=== PATIENT | female | born 1965 | race Caucasian/White ===

== ENCOUNTER 2019-01-07 10:34 | Inpatient (IN) | payer OTHER ==
[~2019-01-07] VITALS: Ht 154.9 cm; Wt 90.8 kg
[~2019-01-07 10:34] MED LIST: CLON-379 PO; FOLI-49 PO; FURO20TA3 PO; GABA100C14 PO; HYDR-3671 PO; INSU100V3 IJ; METO-335 PO; NIFE30TA23 PO; NOVMIX SC; NOVO7030 SC; PANT40TA4 PO
[2019-01-07] MEDS ORDERED: ALBUTEROL 0.083% (NEB) 2.5 MG/3 ML AMP HHN STA (10:43)
[2019-01-07] MEDS ORDERED: NITROGLYCERIN 2% 1 GM OINT PKT TD STA (10:49)
[2019-01-07] MEDS ORDERED: FUROSEMIDE 40 MG INJ IV STA (10:49)
[2019-01-07] MEDS ORDERED: IPRATROPIUM (NEB) 0.5 MG/2.5 ML AMP HHN ONE (11:00)
[2019-01-07] MEDS ORDERED: NITROGLYCERIN (SL) 0.4 MG TAB SL PRN (11:00)
[2019-01-07] MEDS ORDERED: ONDANSETRON 4 MG INJ IV STA (11:22)
[2019-01-07] MEDS ORDERED: CEFEPIME 2GM/50 ML (PMX) 50 ML IVPB STA (12:03)
[2019-01-07] MEDS ORDERED: VANCOMYCIN 1 GM (PMX) 250 ML IVPB ONE (12:30)
[2019-01-07] MEDS ORDERED: ACETAMINOPHEN 325 MG TAB PO PRN (12:30)
[2019-01-07] MEDS ORDERED: ALBUTEROL/IPRATROPIUM (NEB) 3 ML AMP HHN SCH (12:30)
[2019-01-07] MEDS ORDERED: CEFEPIME 2GM/50 ML (PMX) 50 ML IVPB ONE (12:30)
[2019-01-07] MEDS ORDERED: VANCOMYCIN IV PER PHARMACY XX SCH (12:30)
[2019-01-07] MEDS ORDERED: ONDANSETRON 4 MG INJ IV PRN ×2 (12:30→17:00)
[2019-01-07] MEDS: METHYLPREDNISOLONE 40 MG INJ IV SCH ×2 (15:20→22:41)
[2019-01-07] MEDS ORDERED: HYDROCODONE/APAP (5/325) TAB PO PRN (17:00)
[2019-01-07] MEDS ORDERED: NACL 0.9% 3 ML SYG IV SCH (17:00)
[2019-01-07 17:25] VITALS: BP 127/74; PULSE 98; RESP 18
[2019-01-07 18:22] VITALS: Ht 154.9 cm; Wt 90.8 kg
[2019-01-07] MEDS: INSULIN ASPART [NOVOLOG] 3 ML PEN SC SCH ×2 (18:58→23:08)
[2019-01-07] MEDS: INSULIN ASP PROT/ASPART (70/30) PEN SC SCH (18:59)
[2019-01-07 20:00] VITALS: BP 121/66; PULSE 98; RESP 19
[2019-01-07] MEDS: ALBUTEROL/IPRATROPIUM (NEB) 3 ML AMP HHN SCH (20:06)
[2019-01-07 21:04] VITALS: PULSE 96
[2019-01-07] MEDS: NIFEdipine (XL) 30 MG TAB PO SCH (22:40)
[2019-01-07] MEDS: GABAPENTIN 100 MG CAP PO SCH (22:40)
[2019-01-07] MEDS: HEPARIN 5,000 UNIT/1 ML VIAL SC SCH (22:43)
[2019-01-07 23:10] VITALS: PULSE 92
[2019-01-08] VITALS (12 sets, daily range): BP systolic 121–166; BP diastolic 62–79; PULSE 83–101; RESP 18–20
[2019-01-08] MEDS: ALBUTEROL/IPRATROPIUM (NEB) 3 ML AMP HHN SCH ×4 (01:15→19:56)
[2019-01-08] MEDS: ACCU-CHEK XX SCH (02:00)
[2019-01-08] MEDS: METHYLPREDNISOLONE 40 MG INJ IV SCH ×3 (06:13→21:34)
[2019-01-08] MEDS: PANTOPRAZOLE (EC) 40 MG TAB PO SCH (06:13)
[2019-01-08] MEDS: INSULIN ASPART [NOVOLOG] 3 ML PEN SC SCH ×4 (07:39→21:44)
[2019-01-08] MEDS: INSULIN ASP PROT/ASPART (70/30) PEN SC SCH ×2 (07:53→17:30)
[2019-01-08] MEDS: morphine 2 MG INJ IV PRN (08:39)
[2019-01-08] MEDS: METOPROLOL (XL) 25 MG TAB PO SCH (08:39)
[2019-01-08] MEDS: GABAPENTIN 100 MG CAP PO SCH ×3 (08:39→21:34)
[2019-01-08] MEDS: NIFEdipine (XL) 30 MG TAB PO SCH ×2 (08:39→21:34)
[2019-01-08] MEDS: FOLIC ACID 1 MG TAB PO SCH (08:39)
[2019-01-08] MEDS: HEPARIN 5,000 UNIT/1 ML VIAL SC SCH ×2 (08:52→21:40)
[2019-01-08] MEDS: CEFEPIME 2GM/50 ML (PMX) 50 ML IVPB SCH (12:02)
[2019-01-08] MEDS: ACETAMINOPHEN 325 MG TAB PO PRN (13:34)
[2019-01-08] MEDS: METHADONE 10 MG TAB PO SCH (16:40)
[2019-01-08] MEDS: FUROSEMIDE 20 MG INJ IV SCH (17:34)
[2019-01-09] VITALS (9 sets, daily range): BP systolic 127–143; BP diastolic 68–72; PULSE 73–85; RESP 18–20
[2019-01-09] MEDS: ALBUTEROL/IPRATROPIUM (NEB) 3 ML AMP HHN SCH ×4 (01:12→19:39)
[2019-01-09] MEDS: ACCU-CHEK XX SCH (02:00)
[2019-01-09] MEDS: METHYLPREDNISOLONE 40 MG INJ IV SCH ×3 (05:42→21:42)
[2019-01-09] MEDS: FUROSEMIDE 20 MG INJ IV SCH ×2 (05:42→17:38)
[2019-01-09] MEDS: PANTOPRAZOLE (EC) 40 MG TAB PO SCH (07:56)
[2019-01-09] MEDS: INSULIN ASPART [NOVOLOG] 3 ML PEN SC SCH ×4 (08:11→21:00)
[2019-01-09] MEDS: INSULIN ASP PROT/ASPART (70/30) PEN SC SCH ×2 (08:12→18:07)
[2019-01-09] MEDS: FOLIC ACID 1 MG TAB PO SCH (08:14)
[2019-01-09] MEDS: GABAPENTIN 100 MG CAP PO SCH ×3 (08:14→21:42)
[2019-01-09] MEDS: NIFEdipine (XL) 30 MG TAB PO SCH ×2 (10:16→21:42)
[2019-01-09] MEDS: METOPROLOL (XL) 25 MG TAB PO SCH (10:17)
[2019-01-09] MEDS: HEPARIN 5,000 UNIT/1 ML VIAL SC SCH ×2 (10:18→21:51)
[2019-01-09] MEDS: METHADONE 10 MG TAB PO SCH (10:23)
[2019-01-09] MEDS: CEFEPIME 2GM/50 ML (PMX) 50 ML IVPB SCH (14:06)
[2019-01-09] MEDS: VANCOMYCIN 1.25 GM/NS 250 ML 250 ML IVPB SCH (15:39)
[2019-01-10] VITALS: BP 130/74; PULSE 70; RESP 19
[2019-01-10] MEDS: ALBUTEROL/IPRATROPIUM (NEB) 3 ML AMP HHN SCH ×4 (01:37→19:47)
[2019-01-10] MEDS: morphine 2 MG INJ IV PRN ×2 (01:55→15:49)
[2019-01-10] MEDS: ACCU-CHEK XX SCH (02:00)
[2019-01-10 04:00] VITALS: BP 123/69; PULSE 74; RESP 20
[2019-01-10] MEDS: ACETAMINOPHEN 325 MG TAB PO PRN (04:45)
[2019-01-10] MEDS: METHYLPREDNISOLONE 40 MG INJ IV SCH ×3 (06:28→21:07)
[2019-01-10] MEDS: FUROSEMIDE 20 MG INJ IV SCH ×2 (06:30→17:22)
[2019-01-10 07:25] VITALS: BP 127/68; PULSE 72; RESP 22
[2019-01-10] MEDS: INSULIN ASP PROT/ASPART (70/30) PEN SC SCH ×2 (08:00→19:03)
[2019-01-10] MEDS: INSULIN ASPART [NOVOLOG] 3 ML PEN SC SCH ×4 (08:00→20:50)
[2019-01-10] MEDS: PANTOPRAZOLE (EC) 40 MG TAB PO SCH (08:40)
[2019-01-10] MEDS: GABAPENTIN 100 MG CAP PO SCH ×3 (08:41→21:07)
[2019-01-10] MEDS: METOPROLOL (XL) 25 MG TAB PO SCH (08:41)
[2019-01-10] MEDS: FOLIC ACID 1 MG TAB PO SCH (08:41)
[2019-01-10] MEDS: NIFEdipine (XL) 30 MG TAB PO SCH ×2 (08:42→21:07)
[2019-01-10] MEDS: METHADONE 10 MG TAB PO SCH (08:42)
[2019-01-10] MEDS: HEPARIN 5,000 UNIT/1 ML VIAL SC SCH ×2 (09:08→21:12)
[2019-01-10 10:52] VITALS: BP 143/70; PULSE 71; RESP 17
[2019-01-10] MEDS: CEFEPIME 2GM/50 ML (PMX) 50 ML IVPB SCH (14:39)
[2019-01-10 15:00] VITALS: BP 130/71; PULSE 70; RESP 22
[2019-01-10 20:00] VITALS: BP 162/78; PULSE 71; RESP 18
[2019-01-10] MEDS ORDERED: BUMETANIDE 12 MG in DEXTROSE 5% 72 ML IV ONE (20:00)
[2019-01-10] MEDS: ZOLPIDEM 5 MG TAB PO PRN (21:07)
[2019-01-11] VITALS (31 sets, daily range): BP systolic 106–167; BP diastolic 65–125; PULSE 68–86; RESP 14–24
[2019-01-11] MEDS: ALBUTEROL/IPRATROPIUM (NEB) 3 ML AMP HHN SCH ×4 (01:45→20:00)
[2019-01-11] MEDS: ACCU-CHEK XX SCH (02:00)
[2019-01-11] MEDS: morphine 2 MG INJ IV PRN ×4 (02:47→22:22)
[2019-01-11] MEDS: FUROSEMIDE 20 MG INJ IV SCH ×2 (06:00→17:28)
[2019-01-11] MEDS: METHYLPREDNISOLONE 40 MG INJ IV SCH ×3 (06:26→22:22)
[2019-01-11] MEDS: INSULIN ASPART [NOVOLOG] 3 ML PEN SC SCH ×4 (07:51→20:14)
[2019-01-11] MEDS: INSULIN ASP PROT/ASPART (70/30) PEN SC SCH ×2 (07:52→17:35)
[2019-01-11] MEDS: GABAPENTIN 100 MG CAP PO SCH ×3 (08:10→22:21)
[2019-01-11] MEDS: NIFEdipine (XL) 30 MG TAB PO SCH ×2 (08:11→22:22)
[2019-01-11] MEDS: FOLIC ACID 1 MG TAB PO SCH (08:11)
[2019-01-11] MEDS: PANTOPRAZOLE (EC) 40 MG TAB PO SCH (08:11)
[2019-01-11] MEDS: METOPROLOL (XL) 25 MG TAB PO SCH (08:11)
[2019-01-11] MEDS: METHADONE 10 MG TAB PO SCH (08:11)
[2019-01-11] MEDS: HEPARIN 5,000 UNIT/1 ML VIAL SC SCH ×2 (09:25→22:40)
[2019-01-11] MEDS: CEFEPIME 2GM/50 ML (PMX) 50 ML IVPB SCH (14:08)
[2019-01-11] MEDS: VANCOMYCIN 1.25 GM/NS 250 ML 250 ML IVPB SCH (15:50)
[2019-01-11] MEDS ORDERED: morphine 2 MG INJ IV STA (17:47)
[2019-01-11] MEDS ORDERED: HEPARIN 5,000 UNIT/1 ML VIAL CATHETER ONE (21:00)
[2019-01-11] MEDS ORDERED: HEPARIN 1000 UNITS/ML 10 ML INJ ONE (21:26)
[2019-01-12] VITALS (57 sets, daily range): BP systolic 75–163; BP diastolic 56–89; PULSE 59–75; RESP 10–30
[2019-01-12] MEDS: ACCU-CHEK XX SCH (01:01)
[2019-01-12] MEDS: ALBUTEROL/IPRATROPIUM (NEB) 3 ML AMP HHN SCH ×4 (01:33→19:24)
[2019-01-12] MEDS: DOCUSATE SODIUM 100 MG CAP PO PRN ×2 (04:42→14:44)
[2019-01-12] MEDS: morphine 2 MG INJ IV PRN ×3 (04:42→21:16)
[2019-01-12] MEDS: FUROSEMIDE 20 MG INJ IV SCH ×2 (05:19→17:59)
[2019-01-12] MEDS: METHYLPREDNISOLONE 40 MG INJ IV SCH ×2 (05:19→14:58)
[2019-01-12] MEDS: PANTOPRAZOLE (EC) 40 MG TAB PO SCH (06:32)
[2019-01-12] MEDS: INSULIN ASP PROT/ASPART (70/30) PEN SC SCH ×2 (07:35→17:53)
[2019-01-12] MEDS: METOPROLOL (XL) 25 MG TAB PO SCH (08:20)
[2019-01-12] MEDS: FOLIC ACID 1 MG TAB PO SCH (08:20)
[2019-01-12] MEDS: NIFEdipine (XL) 30 MG TAB PO SCH ×2 (08:21→21:01)
[2019-01-12] MEDS: GABAPENTIN 100 MG CAP PO SCH ×3 (08:21→21:00)
[2019-01-12] MEDS: HEPARIN 5,000 UNIT/1 ML VIAL SC SCH ×2 (08:23→21:07)
[2019-01-12] MEDS: INSULIN ASPART [NOVOLOG] 3 ML PEN SC SCH ×4 (08:24→20:13)
[2019-01-12] MEDS: METHADONE 10 MG TAB PO SCH (09:34)
[2019-01-12] MEDS: CEFEPIME 2GM/50 ML (PMX) 50 ML IVPB SCH (13:00)
[2019-01-12] MEDS ORDERED: HEPARIN 1000 UNITS/ML 10 ML INJ CATHETER ONE (14:30)
[2019-01-12] MEDS ORDERED: GLUCOSE GEL 15 GRAM TUBE PO PRN ×2 (15:00)
[2019-01-12] MEDS ORDERED: DEXTROSE 50% 50 ML SYRINGE IV PRN ×2 (15:00)
[2019-01-12] MEDS: LACTULOSE 30ML CUP PO SCH ×2 (15:00→21:01)
[2019-01-12] MEDS ORDERED: GLUCAGON 1 MG INJ IM PRN (15:00)
[2019-01-12] MEDS ORDERED: NA PHOSPHATE/BIPHOS 133 ML ENEMA PR ONE ×2 (15:00)
[2019-01-12] MEDS ORDERED: GLUCOSE GEL 15 GRAM TUBE BUCCAL PRN (15:00)
[2019-01-12] MEDS: METHYLPREDNISOLONE 125 MG INJ IV SCH (21:11)
[2019-01-13] VITALS (53 sets, daily range): BP systolic 89–165; BP diastolic 53–91; PULSE 63–82; RESP 10–25
[2019-01-13] MEDS: ACCU-CHEK XX SCH (01:00)
[2019-01-13] MEDS: LACTULOSE 30ML CUP PO SCH ×3 (01:22→22:49)
[2019-01-13] MEDS: ALBUTEROL/IPRATROPIUM (NEB) 3 ML AMP HHN SCH ×4 (02:27→19:29)
[2019-01-13] MEDS: morphine 2 MG INJ IV PRN ×3 (03:05→22:59)
[2019-01-13] MEDS: METHYLPREDNISOLONE 125 MG INJ IV SCH ×3 (05:28→22:49)
[2019-01-13] MEDS: PANTOPRAZOLE (EC) 40 MG TAB PO SCH (05:29)
[2019-01-13] MEDS: FUROSEMIDE 20 MG INJ IV SCH ×2 (05:30→18:01)
[2019-01-13] MEDS: INSULIN ASPART [NOVOLOG] 3 ML PEN SC SCH ×4 (07:35→20:44)
[2019-01-13] MEDS: GABAPENTIN 100 MG CAP PO SCH ×3 (08:39→20:38)
[2019-01-13] MEDS: FOLIC ACID 1 MG TAB PO SCH (08:39)
[2019-01-13] MEDS: METHADONE 10 MG TAB PO SCH (08:41)
[2019-01-13] MEDS: HEPARIN 5,000 UNIT/1 ML VIAL SC SCH ×2 (08:43→20:40)
[2019-01-13] MEDS: INSULIN ASP PROT/ASPART (70/30) PEN SC SCH ×2 (08:44→18:05)
[2019-01-13] MEDS: METOPROLOL (XL) 25 MG TAB PO SCH (08:54)
[2019-01-13] MEDS: NIFEdipine (XL) 30 MG TAB PO SCH ×2 (08:54→20:39)
[2019-01-13] MEDS ORDERED: ALBUMIN HUMAN 25% 100 ML IV PRN (11:30)
[2019-01-13] MEDS ORDERED: ALTEPLASE (CATHFLO) 2 MG INJ CATHETER ONE (12:00)
[2019-01-13] MEDS: CEFEPIME 2GM/50 ML (PMX) 50 ML IVPB SCH ×2 (12:14→14:54)
[2019-01-14] VITALS (51 sets, daily range): BP systolic 112–180; BP diastolic 64–91; PULSE 66–86; RESP 10–23
[2019-01-14] MEDS: ALBUTEROL/IPRATROPIUM (NEB) 3 ML AMP HHN SCH ×4 (01:09→19:38)
[2019-01-14] MEDS: ACCU-CHEK XX SCH (02:01)
[2019-01-14] MEDS: ZOLPIDEM 5 MG TAB PO PRN (02:18)
[2019-01-14] MEDS: METHYLPREDNISOLONE 125 MG INJ IV SCH ×3 (05:52→23:26)
[2019-01-14] MEDS: LACTULOSE 30ML CUP PO SCH ×3 (05:53→21:51)
[2019-01-14] MEDS: FUROSEMIDE 20 MG INJ IV SCH ×2 (05:54→17:54)
[2019-01-14] MEDS: PANTOPRAZOLE (EC) 40 MG TAB PO SCH (08:26)
[2019-01-14] MEDS: GABAPENTIN 100 MG CAP PO SCH ×3 (08:27→23:25)
[2019-01-14] MEDS: METHADONE 10 MG TAB PO SCH (08:27)
[2019-01-14] MEDS: FOLIC ACID 1 MG TAB PO SCH (08:27)
[2019-01-14] MEDS: INSULIN ASPART [NOVOLOG] 3 ML PEN SC SCH ×4 (08:30→23:30)
[2019-01-14] MEDS: INSULIN ASP PROT/ASPART (70/30) PEN SC SCH ×2 (08:31→17:57)
[2019-01-14] MEDS: HEPARIN 5,000 UNIT/1 ML VIAL SC SCH ×2 (08:32→21:00)
[2019-01-14] MEDS: METOPROLOL (XL) 25 MG TAB PO SCH (08:36)
[2019-01-14] MEDS: NIFEdipine (XL) 30 MG TAB PO SCH ×2 (08:36→21:00)
[2019-01-14] MEDS: CEFEPIME 1GM/50 ML IVPB SCH (14:18)
[2019-01-14] MEDS ORDERED: VANCOMYCIN 1.25 GM/NS 250 ML 250 ML IVPB SCH (15:30)
[2019-01-14] MEDS: morphine 2 MG INJ IV PRN (23:31)
[2019-01-14] MEDS: HEPARIN 1000 UNITS/ML 10 ML INJ CATHETER SCH (23:42)
[2019-01-15] VITALS (31 sets, daily range): BP systolic 123–173; BP diastolic 74–108; PULSE 69–88; RESP 10–36
[2019-01-15] MEDS: ALBUTEROL/IPRATROPIUM (NEB) 3 ML AMP HHN PRN ×2 (00:35→09:23)
[2019-01-15] MEDS: ACCU-CHEK XX SCH (02:00)
[2019-01-15] MEDS: FUROSEMIDE 20 MG INJ IV SCH ×2 (05:25→17:19)
[2019-01-15] MEDS: LACTULOSE 30ML CUP PO SCH ×3 (05:25→22:00)
[2019-01-15] MEDS: METHYLPREDNISOLONE 125 MG INJ IV SCH ×3 (05:25→22:00)
[2019-01-15] MEDS: ALBUTEROL/IPRATROPIUM (NEB) 3 ML AMP HHN SCH ×4 (05:37→20:06)
[2019-01-15] MEDS: CHOLECALCIFEROL 2,000 UNIT CAP PO SCH (08:49)
[2019-01-15] MEDS: FOLIC ACID 1 MG TAB PO SCH (08:49)
[2019-01-15] MEDS: PANTOPRAZOLE (EC) 40 MG TAB PO SCH (08:50)
[2019-01-15] MEDS: METOPROLOL (XL) 25 MG TAB PO SCH (08:50)
[2019-01-15] MEDS: NIFEdipine (XL) 30 MG TAB PO SCH ×2 (08:50→20:41)
[2019-01-15] MEDS: GABAPENTIN 100 MG CAP PO SCH ×3 (08:50→20:41)
[2019-01-15] MEDS: METHADONE 10 MG TAB PO SCH (08:51)
[2019-01-15] MEDS: INSULIN ASP PROT/ASPART (70/30) PEN SC SCH ×2 (08:52→17:23)
[2019-01-15] MEDS: HEPARIN 5,000 UNIT/1 ML VIAL SC SCH ×2 (08:52→20:43)
[2019-01-15] MEDS: INSULIN ASPART [NOVOLOG] 3 ML PEN SC SCH ×4 (08:53→20:43)
[2019-01-15] MEDS: CEFEPIME 1GM/50 ML IVPB SCH (12:15)
[2019-01-15] MEDS: morphine 2 MG INJ IV PRN (15:36)
[2019-01-16] VITALS (37 sets, daily range): BP systolic 80–154; BP diastolic 48–92; PULSE 73–88; RESP 0–27
[2019-01-16] MEDS: ALBUTEROL/IPRATROPIUM (NEB) 3 ML AMP HHN SCH ×4 (01:25→19:46)
[2019-01-16] MEDS: ACCU-CHEK XX SCH (02:39)
[2019-01-16] MEDS ORDERED: ACCU-CHEK XX ONE ×2 (03:00→21:00)
[2019-01-16] MEDS ORDERED: INSULIN ASPART [NOVOLOG] 3 ML PEN SC ONE ×2 (03:00→21:00)
[2019-01-16] MEDS: ALBUTEROL/IPRATROPIUM (NEB) 3 ML AMP HHN PRN (04:40)
[2019-01-16] MEDS: LACTULOSE 30ML CUP PO SCH ×3 (06:00→21:13)
[2019-01-16] MEDS: PANTOPRAZOLE (EC) 40 MG TAB PO SCH (06:09)
[2019-01-16] MEDS: METHYLPREDNISOLONE 125 MG INJ IV SCH ×3 (06:09→21:18)
[2019-01-16] MEDS: morphine 2 MG INJ IV PRN (06:17)
[2019-01-16] MEDS: FUROSEMIDE 20 MG INJ IV SCH ×2 (06:18→18:00)
[2019-01-16] MEDS ORDERED: MAGNESIUM SULFATE 2 GM/50 ML 50 ML IVPB ONE (07:00)
[2019-01-16] MEDS: GABAPENTIN 100 MG CAP PO SCH ×3 (08:11→20:28)
[2019-01-16] MEDS: CHOLECALCIFEROL 2,000 UNIT CAP PO SCH (08:11)
[2019-01-16] MEDS: METHADONE 10 MG TAB PO SCH (08:11)
[2019-01-16] MEDS: FOLIC ACID 1 MG TAB PO SCH (08:11)
[2019-01-16] MEDS: NIFEdipine (XL) 30 MG TAB PO SCH ×2 (08:12→20:29)
[2019-01-16] MEDS: METOPROLOL (XL) 25 MG TAB PO SCH (08:12)
[2019-01-16] MEDS: HEPARIN 5,000 UNIT/1 ML VIAL SC SCH ×2 (08:14→20:32)
[2019-01-16] MEDS: INSULIN ASP PROT/ASPART (70/30) PEN SC SCH ×2 (08:16→18:29)
[2019-01-16] MEDS: INSULIN ASPART [NOVOLOG] 3 ML PEN SC SCH ×4 (08:17→20:58)
[2019-01-16] MEDS ORDERED: ALTEPLASE (CATHFLO) 2 MG INJ CATHETER ONE (18:00)
[2019-01-16] MEDS ORDERED: INSULIN GLARGINE [LANTus] (100 UNITS/ML) SYG SC SCH (20:00)
[2019-01-16] MEDS: DOCUSATE SODIUM 100 MG CAP PO PRN (20:28)
[2019-01-17] VITALS (24 sets, daily range): BP systolic 107–147; BP diastolic 67–107; PULSE 68–92; RESP 12–29
[2019-01-17] MEDS: morphine 2 MG INJ IV PRN ×2 (00:27→06:46)
[2019-01-17] MEDS: ACCU-CHEK XX SCH (02:55)
[2019-01-17] MEDS: ALBUTEROL/IPRATROPIUM (NEB) 3 ML AMP HHN SCH ×4 (04:26→20:00)
[2019-01-17] MEDS: LACTULOSE 30ML CUP PO SCH ×2 (05:55→21:10)
[2019-01-17] MEDS: FUROSEMIDE 20 MG INJ IV SCH ×2 (06:12→17:40)
[2019-01-17] MEDS: METHYLPREDNISOLONE 125 MG INJ IV SCH ×3 (06:12→21:13)
[2019-01-17] MEDS: PANTOPRAZOLE (EC) 40 MG TAB PO SCH (06:12)
[2019-01-17] MEDS: INSULIN ASP PROT/ASPART (70/30) PEN SC SCH ×2 (08:19→17:44)
[2019-01-17] MEDS: INSULIN ASPART [NOVOLOG] 3 ML PEN SC SCH ×4 (08:20→21:00)
[2019-01-17] MEDS: HEPARIN 5,000 UNIT/1 ML VIAL SC SCH (08:21)
[2019-01-17] MEDS: NIFEdipine (XL) 30 MG TAB PO SCH ×2 (08:27→21:11)
[2019-01-17] MEDS: CHOLECALCIFEROL 2,000 UNIT CAP PO SCH (08:27)
[2019-01-17] MEDS: FOLIC ACID 1 MG TAB PO SCH (08:27)
[2019-01-17] MEDS: GABAPENTIN 100 MG CAP PO SCH ×3 (08:27→21:11)
[2019-01-17] MEDS: METOPROLOL (XL) 25 MG TAB PO SCH (08:27)
[2019-01-17] MEDS: METHADONE 10 MG TAB PO SCH (08:28)
[2019-01-17] MEDS ORDERED: POTASSIUM CHLORIDE (SR) 20 MEQ TAB PO STA (08:40)
[2019-01-17] MEDS ORDERED: INSULIN GLARGINE [LANTus] (100 UNITS/ML) SYG SC ONE (20:00)
[2019-01-17] MEDS: FENTAnyl 50 MCG/ML VIAL IV PRN (21:18)
[2019-01-17] MEDS ORDERED: INSULIN ASPART [NOVOLOG] 3 ML PEN SC ONE (22:30)
[2019-01-18] VITALS (29 sets, daily range): BP systolic 117–156; BP diastolic 60–88; PULSE 71–85; RESP 10–26
[2019-01-18] MEDS ORDERED: ACCU-CHEK XX ONE (00:30)
[2019-01-18] MEDS: ALBUTEROL/IPRATROPIUM (NEB) 3 ML AMP HHN SCH ×4 (01:19→20:00)
[2019-01-18] MEDS: FENTAnyl 50 MCG/ML VIAL IV PRN ×3 (01:31→12:06)
[2019-01-18] MEDS: ACCU-CHEK XX SCH ×13 (04:00→23:30)
[2019-01-18] MEDS: METHYLPREDNISOLONE 125 MG INJ IV SCH ×3 (05:42→21:42)
[2019-01-18] MEDS: FUROSEMIDE 20 MG INJ IV SCH ×2 (05:42→17:35)
[2019-01-18] MEDS: PANTOPRAZOLE (EC) 40 MG TAB PO SCH (05:43)
[2019-01-18] MEDS: INSULIN ASPART [NOVOLOG] 3 ML PEN SC SCH ×2 (08:22→11:57)
[2019-01-18] MEDS: LACTULOSE 30ML CUP PO SCH (08:57)
[2019-01-18] MEDS: NIFEdipine (XL) 30 MG TAB PO SCH ×2 (08:57→20:38)
[2019-01-18] MEDS: FOLIC ACID 1 MG TAB PO SCH (08:58)
[2019-01-18] MEDS: METOPROLOL (XL) 25 MG TAB PO SCH (08:58)
[2019-01-18] MEDS: CHOLECALCIFEROL 2,000 UNIT CAP PO SCH (08:58)
[2019-01-18] MEDS: GABAPENTIN 100 MG CAP PO SCH ×3 (08:59→20:38)
[2019-01-18] MEDS: METHADONE 10 MG TAB PO SCH (08:59)
[2019-01-18] MEDS ORDERED: DEXTROSE 50% 50 ML SYRINGE IV PRN ×2 (12:30)
[2019-01-18] MEDS: INSULIN HUMAN REGULAR 100 UNIT in SOD CHLORIDE 0.9% 99 ML IV SCH (13:26)
[2019-01-18] MEDS: LACTOBACILLUS RHAMNOSUS CAP PO SCH (20:38)
[2019-01-18] MEDS: ALBUTEROL/IPRATROPIUM (NEB) 3 ML AMP HHN PRN (22:16)
[2019-01-19] VITALS (27 sets, daily range): BP systolic 85–136; BP diastolic 57–98; PULSE 23–82; RESP 9–19
[2019-01-19] MEDS: ACCU-CHEK XX SCH ×25 (00:33→23:18)
[2019-01-19] MEDS: ALBUTEROL/IPRATROPIUM (NEB) 3 ML AMP HHN SCH ×4 (02:00→19:29)
[2019-01-19] MEDS: FUROSEMIDE 20 MG INJ IV SCH ×2 (06:17→17:45)
[2019-01-19] MEDS: METHYLPREDNISOLONE 125 MG INJ IV SCH (06:19)
[2019-01-19] MEDS: PANTOPRAZOLE (EC) 40 MG TAB PO SCH (06:21)
[2019-01-19] MEDS: FENTAnyl 50 MCG/ML VIAL IV PRN (08:02)
[2019-01-19] MEDS: LACTULOSE 30ML CUP PO SCH (08:44)
[2019-01-19] MEDS: GABAPENTIN 100 MG CAP PO SCH ×3 (08:45→20:53)
[2019-01-19] MEDS: NIFEdipine (XL) 30 MG TAB PO SCH ×2 (08:45→20:53)
[2019-01-19] MEDS: LACTOBACILLUS RHAMNOSUS CAP PO SCH ×2 (08:45→20:52)
[2019-01-19] MEDS: FOLIC ACID 1 MG TAB PO SCH (08:45)
[2019-01-19] MEDS: METHADONE 10 MG TAB PO SCH (08:45)
[2019-01-19] MEDS: METOPROLOL (XL) 25 MG TAB PO SCH (08:46)
[2019-01-19] MEDS: CHOLECALCIFEROL 2,000 UNIT CAP PO SCH (08:46)
[2019-01-19] MEDS: HEPARIN 5,000 UNIT/1 ML VIAL SC SCH ×2 (09:04→20:54)
[2019-01-19] MEDS: INSULIN HUMAN REGULAR 100 UNIT in SOD CHLORIDE 0.9% 99 ML IV SCH (09:28)
[2019-01-19] MEDS: METHYLPREDNISOLONE 40 MG INJ IV SCH ×3 (11:39→23:48)
[2019-01-19] MEDS ORDERED: ACETAMINOPHEN 325 MG TAB PO PRN (12:00)
[2019-01-19] MEDS ORDERED: HYDROCODONE/APAP (10/325) TAB PO PRN (18:00)
[2019-01-20] VITALS (29 sets, daily range): BP systolic 102–155; BP diastolic 55–107; PULSE 72–85; RESP 8–28
[2019-01-20] MEDS: ACCU-CHEK XX SCH ×21 (00:40→20:30)
[2019-01-20] MEDS: ALBUTEROL/IPRATROPIUM (NEB) 3 ML AMP HHN SCH ×4 (01:47→20:03)
[2019-01-20] MEDS: METHYLPREDNISOLONE 40 MG INJ IV SCH ×4 (05:21→23:02)
[2019-01-20] MEDS: FUROSEMIDE 20 MG INJ IV SCH ×2 (05:21→17:55)
[2019-01-20] MEDS: PANTOPRAZOLE (EC) 40 MG TAB PO SCH (07:05)
[2019-01-20] MEDS: LACTULOSE 30ML CUP PO SCH (08:14)
[2019-01-20] MEDS: GABAPENTIN 100 MG CAP PO SCH ×3 (08:15→20:51)
[2019-01-20] MEDS: NIFEdipine (XL) 30 MG TAB PO SCH ×2 (08:15→20:51)
[2019-01-20] MEDS: FOLIC ACID 1 MG TAB PO SCH (08:16)
[2019-01-20] MEDS: LACTOBACILLUS RHAMNOSUS CAP PO SCH ×2 (08:16→20:51)
[2019-01-20] MEDS: CHOLECALCIFEROL 2,000 UNIT CAP PO SCH (08:16)
[2019-01-20] MEDS: METOPROLOL (XL) 25 MG TAB PO SCH (08:16)
[2019-01-20] MEDS ORDERED: NA POLYST SULFON 15 GM/60 ML BTL PO ONE (08:30)
[2019-01-20] MEDS: HEPARIN 5,000 UNIT/1 ML VIAL SC SCH ×2 (08:36→20:53)
[2019-01-20] MEDS: METHADONE 10 MG TAB PO SCH (08:50)
[2019-01-20] MEDS: FENTAnyl 50 MCG/ML VIAL IV PRN ×2 (12:00→21:59)
[2019-01-20] MEDS: INSULIN HUMAN REGULAR 100 UNIT in SOD CHLORIDE 0.9% 99 ML IV SCH (16:55)
[2019-01-20] MEDS ORDERED: INSULIN GLARGINE [LANTus] (100 UNITS/ML) SYG SC SCH (20:00)
[2019-01-21] VITALS (61 sets, daily range): BP systolic 80–147; BP diastolic 52–111; PULSE 73–87; RESP 7–28
[2019-01-21] MEDS: ACCU-CHEK XX SCH ×23 (01:45→23:00)
[2019-01-21] MEDS: ALBUTEROL/IPRATROPIUM (NEB) 3 ML AMP HHN SCH ×4 (01:55→20:43)
[2019-01-21] MEDS ORDERED: DEXTROSE 50% 50 ML SYRINGE IV PRN ×2 (02:00)
[2019-01-21] MEDS: INSULIN HUMAN REGULAR 100 UNIT in SOD CHLORIDE 0.9% 99 ML IV SCH (02:33)
[2019-01-21] MEDS: METHYLPREDNISOLONE 40 MG INJ IV SCH ×3 (06:20→18:31)
[2019-01-21] MEDS: PANTOPRAZOLE (EC) 40 MG TAB PO SCH (06:20)
[2019-01-21] MEDS: FUROSEMIDE 20 MG INJ IV SCH ×2 (06:21→18:00)
[2019-01-21] MEDS ORDERED: INSULIN ASPART [NOVOLOG] 3 ML PEN SC SCH (07:35)
[2019-01-21] MEDS: GABAPENTIN 100 MG CAP PO SCH ×3 (08:19→21:00)
[2019-01-21] MEDS: LACTULOSE 30ML CUP PO SCH ×3 (08:19→08:38)
[2019-01-21] MEDS: LACTOBACILLUS RHAMNOSUS CAP PO SCH ×2 (08:19→21:00)
[2019-01-21] MEDS: METHADONE 10 MG TAB PO SCH (08:19)
[2019-01-21] MEDS: FOLIC ACID 1 MG TAB PO SCH (08:20)
[2019-01-21] MEDS: CHOLECALCIFEROL 2,000 UNIT CAP PO SCH (08:20)
[2019-01-21] MEDS: HEPARIN 5,000 UNIT/1 ML VIAL SC SCH ×2 (08:22→21:19)
[2019-01-21] MEDS: METOPROLOL (XL) 25 MG TAB PO SCH (09:00)
[2019-01-21] MEDS: NIFEdipine (XL) 30 MG TAB PO SCH ×2 (09:00→21:00)
[2019-01-21] MEDS ORDERED: VANCOMYCIN IV PER PHARMACY XX SCH (10:00)
[2019-01-21] MEDS ORDERED: VANCOMYCIN HCL 1.75 GM in SOD CHLORIDE 0.9% 500 ML IVPB ONE (10:30)
[2019-01-21] MEDS: CEFEPIME 1GM/50 ML (PMX) 50 ML IVPB SCH (11:38)
[2019-01-21] MEDS: LORAZEPAM 2 MG INJ IV PRN (14:54)
[2019-01-21] MEDS: HEPARIN 1000 UNITS/ML 10 ML INJ CATHETER SCH (17:57)
[2019-01-22] VITALS (53 sets, daily range): BP systolic 90–131; BP diastolic 41–88; PULSE 80–95; RESP 7–21
[2019-01-22] MEDS: METHYLPREDNISOLONE 40 MG INJ IV SCH ×5 (00:09→23:52)
[2019-01-22] MEDS: ACCU-CHEK XX SCH ×26 (01:00→23:51)
[2019-01-22] MEDS: ALBUTEROL/IPRATROPIUM (NEB) 3 ML AMP HHN SCH ×4 (02:29→19:21)
[2019-01-22] MEDS: FUROSEMIDE 20 MG INJ IV SCH ×2 (06:30→18:54)
[2019-01-22] MEDS: PANTOPRAZOLE (EC) 40 MG TAB PO SCH (06:31)
[2019-01-22] MEDS: LACTULOSE 30ML CUP PO SCH (09:00)
[2019-01-22] MEDS: GABAPENTIN 100 MG CAP PO SCH ×3 (09:00→21:00)
[2019-01-22] MEDS: LACTOBACILLUS RHAMNOSUS CAP PO SCH ×2 (09:00→21:00)
[2019-01-22] MEDS: CHOLECALCIFEROL 2,000 UNIT CAP PO SCH (09:00)
[2019-01-22] MEDS: NIFEdipine (XL) 30 MG TAB PO SCH ×2 (09:00→21:00)
[2019-01-22] MEDS: FOLIC ACID 1 MG TAB PO SCH (09:00)
[2019-01-22] MEDS: METHADONE 10 MG TAB PO SCH (09:00)
[2019-01-22] MEDS: METOPROLOL (XL) 25 MG TAB PO SCH (09:00)
[2019-01-22] MEDS: HEPARIN 5,000 UNIT/1 ML VIAL SC SCH (09:00)
[2019-01-22] MEDS: CEFEPIME 1GM/50 ML (PMX) 50 ML IVPB SCH (10:38)
[2019-01-22] MEDS ORDERED: morphine 2 MG INJ IV STA (14:43)
[2019-01-22] MEDS: HEPARIN 1000 UNITS/ML 10 ML INJ CATHETER SCH (17:11)
[2019-01-22] MEDS ORDERED: BISACODYL 10 MG SUPP PR PRN (21:00)
[2019-01-22] MEDS ORDERED: ACETAMINOPHEN 1000MG/100ML IV 100 ML IVPB ONE (21:30)
[2019-01-22] MEDS: FENTAnyl 50 MCG/ML VIAL IV PRN (23:57)
[2019-01-23] VITALS (50 sets, daily range): BP systolic 114–187; BP diastolic 57–139; PULSE 76–141; RESP 10–26
[2019-01-23] MEDS: ACCU-CHEK XX SCH ×18 (01:00→21:20)
[2019-01-23] MEDS: ALBUTEROL/IPRATROPIUM (NEB) 3 ML AMP HHN SCH ×4 (02:14→19:30)
[2019-01-23] MEDS: INSULIN HUMAN REGULAR 100 UNIT in SOD CHLORIDE 0.9% 99 ML IV SCH (03:49)
[2019-01-23] MEDS: FUROSEMIDE 20 MG INJ IV SCH ×2 (06:05→19:15)
[2019-01-23] MEDS: PANTOPRAZOLE (EC) 40 MG TAB PO SCH (06:06)
[2019-01-23] MEDS: METHYLPREDNISOLONE 40 MG INJ IV SCH ×3 (06:06→19:20)
[2019-01-23] MEDS: FENTAnyl 50 MCG/ML VIAL IV PRN ×5 (06:06→23:04)
[2019-01-23] MEDS: LACTOBACILLUS RHAMNOSUS CAP PO SCH ×2 (09:00→20:53)
[2019-01-23] MEDS: FOLIC ACID 1 MG TAB PO SCH (09:00)
[2019-01-23] MEDS: GABAPENTIN 100 MG CAP PO SCH ×3 (09:00→20:53)
[2019-01-23] MEDS: METOPROLOL (XL) 25 MG TAB PO SCH (09:00)
[2019-01-23] MEDS: CHOLECALCIFEROL 2,000 UNIT CAP PO SCH (09:00)
[2019-01-23] MEDS: METHADONE 10 MG TAB PO SCH (09:00)
[2019-01-23] MEDS: LACTULOSE 30ML CUP PO SCH (09:00)
[2019-01-23] MEDS: NIFEdipine (XL) 30 MG TAB PO SCH ×2 (09:00→20:54)
[2019-01-23] MEDS: CEFEPIME 1GM/50 ML (PMX) 50 ML IVPB SCH (10:10)
[2019-01-23] MEDS ORDERED: DILTIAZEM 25 MG INJ IV STA (12:09)
[2019-01-23] MEDS: HEPARIN 1000 UNITS/ML 10 ML INJ CATHETER SCH (12:44)
[2019-01-23] MEDS ORDERED: VANCOMYCIN 1.25 GM/NS 250 ML 250 ML IVPB SCH (14:00)
[2019-01-23] MEDS ORDERED: NA POLYST SULFON 15 GM/60 ML BTL PO ONE (14:00)
[2019-01-23] MEDS: LORAZEPAM 2 MG INJ IV PRN (19:45)
[2019-01-23] MEDS ORDERED: INSULIN GLARGINE [LANTus] (100 UNITS/ML) SYG SC SCH (20:00)
[2019-01-23] MEDS: INSULIN ASPART [NOVOLOG] 3 ML PEN SC SCH (21:00)
[2019-01-23] MEDS: hydrALAzine 20 MG INJ IV PRN (22:28)
[2019-01-24] VITALS (36 sets, daily range): BP systolic 120–172; BP diastolic 68–99; PULSE 95–139; RESP 10–28
[2019-01-24] MEDS: METHYLPREDNISOLONE 40 MG INJ IV SCH ×3 (00:16→12:53)
[2019-01-24] MEDS: INSULIN ASPART [NOVOLOG] 3 ML PEN SC SCH ×4 (00:28→13:11)
[2019-01-24] MEDS: ACCU-CHEK XX SCH ×3 (01:00→09:00)
[2019-01-24] MEDS: ALBUTEROL/IPRATROPIUM (NEB) 3 ML AMP HHN SCH ×3 (01:07→14:50)
[2019-01-24] MEDS ORDERED: ACCU-CHEK XX SCH ×2 (02:00)
[2019-01-24] MEDS: hydrALAzine 20 MG INJ IV PRN (04:13)
[2019-01-24] MEDS: FUROSEMIDE 20 MG INJ IV SCH (05:27)
[2019-01-24] MEDS: FENTAnyl 50 MCG/ML VIAL IV PRN ×3 (05:33→12:47)
[2019-01-24] MEDS: PANTOPRAZOLE (EC) 40 MG TAB PO SCH (06:37)
[2019-01-24] MEDS ORDERED: DILTIAZEM 25 MG INJ IV ONE (07:00)
[2019-01-24] MEDS: LACTOBACILLUS RHAMNOSUS CAP PO SCH (08:21)
[2019-01-24] MEDS: LACTULOSE 30ML CUP PO SCH (08:21)
[2019-01-24] MEDS: FOLIC ACID 1 MG TAB PO SCH (08:21)
[2019-01-24] MEDS: METOPROLOL (XL) 25 MG TAB PO SCH (08:22)
[2019-01-24] MEDS: METHADONE 10 MG TAB PO SCH (08:22)
[2019-01-24] MEDS: NIFEdipine (XL) 30 MG TAB PO SCH (08:22)
[2019-01-24] MEDS: GABAPENTIN 100 MG CAP PO SCH ×2 (08:22→10:06)
[2019-01-24] MEDS: CHOLECALCIFEROL 2,000 UNIT CAP PO SCH (08:22)
[2019-01-24] MEDS: LORAZEPAM 2 MG INJ IV PRN (08:47)
[2019-01-24] MEDS: CEFEPIME 1GM/50 ML (PMX) 50 ML IVPB SCH (12:54)
[2019-01-24] MEDS ORDERED: LORAZEPAM 2 MG INJ IV PRN (15:30)
[2019-01-24] MEDS ORDERED: HYDROmorphONE 2 MG/ML SYG IV PRN (15:30)
[2019-01-24] MEDS ORDERED: ATROPINE SULFATE 1% 5ML SL PRN (16:30)
[2019-01-24] MEDS: morphine (DRIP) 100 MG/100 ML 100 ML IV SCH (17:17)
[2019-01-25] VITALS (19 sets, daily range): BP systolic 0–124; BP diastolic 0–103; PULSE 0–130; RESP 0–15
[2019-01-25] MEDS: morphine (DRIP) 100 MG/100 ML 100 ML IV SCH ×2 (03:01→12:35)
== END 2019-01-25 18:11 | disposition expired | DRG 193 ==
LOC: E/R 10:34 → 6WM 12:11 → ICU 01-11 14:38
PROVIDERS: ADMIT Internal Medicine; ATTEND Internal Medicine
PROC: 06HY33Z Insertion of Infusion Device into Lower Vein, Percutaneous Approach (ICD-10-PCS; principal; 2019-01-11)
PROC: 5A1D70Z Performance of Urinary Filtration, Intermittent, Less than 6 Hours Per Day (ICD-10-PCS; 2019-01-11)
DX: J18.9 Pneumonia, unspecified organism (principal); J96.21 Acute and chronic respiratory failure with hypoxia; N17.0 Acute kidney failure with tubular necrosis; E87.2 Acidosis; I13.0 Hypertensive heart and chronic kidney disease with heart failure and stage 1 through stage 4 chronic kidney disease, or unspecified chronic kidney disease; I50.32 Chronic diastolic (congestive) heart failure; J44.0 Chronic obstructive pulmonary disease with (acute) lower respiratory infection; I27.20 Pulmonary hypertension, unspecified; J84.10 Pulmonary fibrosis, unspecified; B19.20 Unspecified viral hepatitis C without hepatic coma; D63.1 Anemia in chronic kidney disease; E11.22 Type 2 diabetes mellitus with diabetic chronic kidney disease; E66.01 Morbid (severe) obesity due to excess calories; E87.70 Fluid overload, unspecified; F11.10 Opioid abuse, uncomplicated; G89.4 Chronic pain syndrome; K72.90 Hepatic failure, unspecified without coma; K70.30 Alcoholic cirrhosis of liver without ascites; K59.09 Other constipation; N18.9 Chronic kidney disease, unspecified; R14.0 Abdominal distension (gaseous); Z66 Do not resuscitate; Z51.5 Encounter for palliative care; Z87.891 Personal history of nicotine dependence; Z68.37 Body mass index [BMI] 37.0-37.9, adult; Z99.81 Dependence on supplemental oxygen; Z79.4 Long term (current) use of insulin
CPT/HCPCS: 36415; 36573; 36600; 71045; 71250; 76705; 76775; 80048; 80053; 80202; 81001; 81003; 82043; 82140; 82306; 82570; 82595; 82652; 82803; 82962; 83036; 83605; 83735; 83970; 84100; 84155; 84156; 84165; 84166; 84300; 84443; 84484; 85025; 85576; 85610; 85730; 86021; 86038; 86160; 86226; 86320; 86325; 86430; 86704; 86709; 86803; 87081; 87340; 90935; 92610; 93005; 93306; 93970; 94640; 94660; 94664; 96374; 96375; 97163; C1752; J0131; J0360; J0692; J1170; J1644; J1815; J1817; J1940; J2060; J2270; J2405; J2920; J2930; J2997; J3010; J3370; J3475; J7040; P9047